=== PATIENT | male | born 2000 | race African-American/Black ===

== ENCOUNTER 2024-02-05 17:01 | Emergency (ER) | payer OTHER ==
[~2024-02-05] VITALS: Ht 182.9 cm; Wt 91.4 kg
[2024-02-05 17:07] VITALS: BP 135/70
[2024-02-05] MEDS ORDERED: AMOXICILLIN 8751 TAB PO (18:23)
[2024-02-05] MEDS ORDERED: Tdap Vaccine 0.5 ML SYRINGE IM ONE (18:30)
[2024-02-05] MEDS ORDERED: Amoxicillin/Clavulanate K+ 875/125 MG TAB PO ONE (18:30)
[2024-02-05 18:40] VITALS: PULSE 83
== END 2024-02-05 18:40 | disposition home or self-care (01) ==
LOC: COL.ER 17:01
DX: S01.551A Open bite of lip, initial encounter (principal); S61.250A Open bite of right index finger without damage to nail, initial encounter; S61.051A Open bite of right thumb without damage to nail, initial encounter; W54.0XXA Bitten by dog, initial encounter